=== PATIENT | male | born 2000 | race Caucasian/White ===

== ENCOUNTER 2020-05-04 21:59 | Emergency (ER) | payer SELFPAY ==
[~2020-05-04] VITALS: Ht 188 cm; Wt 117.0 kg
[2020-05-04] MEDS ORDERED: ALBUTEROL (0.083%) 2.5MG/3ML NEB HHN STA (23:37)
[2020-05-04] MEDS ORDERED: PREDNISONE 20MG TABLET PO STA (23:37)
[2020-05-04] MEDS ORDERED: IPRATROPIUM BROMIDE (0.02%) 0.5MG/2.5ML NEB HHN STA (23:37)
[2020-05-05 02:45] VITALS: BP 120/72
== END 2020-05-05 02:47 | disposition home or self-care (01) ==
LOC: ER 21:59
DX: J45.901 Unspecified asthma with (acute) exacerbation (principal); R06.02 Shortness of breath; Z76.0 Encounter for issue of repeat prescription
CPT/HCPCS: 71045; 93005; 94640; 99283; J7512; Z7610

== ENCOUNTER 2022-12-26 20:59 | Emergency (ER) | payer MEDICAID ==
[~2022-12-26] VITALS: Ht 190.5 cm; Wt 113.0 kg
[2022-12-26] MEDS ORDERED: KETOROLAC 60MG/2ML VIAL IM ONE (21:30)
[2022-12-26] MEDS ORDERED: IBUP-2028 MT (22:01)
[2022-12-26 22:13] VITALS: BP 125/76
== END 2022-12-26 22:13 | disposition home or self-care (01) ==
LOC: ER 20:59
DX: M25.571 Pain in right ankle and joints of right foot (principal); J45.909 Unspecified asthma, uncomplicated; X58.XXXA Exposure to other specified factors, initial encounter; Y93.67 Activity, basketball; Y92.89 Other specified places as the place of occurrence of the external cause; Y99.8 Other external cause status
CPT/HCPCS: 73610; 99283; Z7610

== ENCOUNTER 2023-07-05 14:14 | Emergency (ER) | payer MEDICAID ==
[~2023-07-05] VITALS: Ht 188 cm; Wt 108.9 kg
[~2023-07-05 14:14] MED LIST: IBUP-2028 MT
[2023-07-05 14:21] VITALS: BP 137/75; O2SAT 98
[2023-07-05] MEDS ORDERED: NAPR-681 PO (16:54)
[2023-07-05] MEDS ORDERED: ALBU18HF2 IH (16:54)
[2023-07-05] MEDS ORDERED: GUAI5LIQ13 PO (16:54)
[2023-07-05 17:55] VITALS: PULSE 77; RESP 16; TEMP 98.6
== END 2023-07-05 17:55 | disposition home or self-care (01) ==
LOC: ER 14:14
DX: J20.9 Acute bronchitis, unspecified (principal); J02.9 Acute pharyngitis, unspecified
CPT/HCPCS: 87430; 87070; 71045; 99284; Z7610

== ENCOUNTER 2023-11-23 20:56 | Emergency (ER) | payer MEDICAID ==
[~2023-11-23] VITALS: Ht 188 cm; Wt 113.0 kg
[~2023-11-23 20:56] MED LIST changes: +ALBU18HF2 IH; +GUAI5LIQ13 PO; +NAPR-681 PO
[2023-11-23 21:12] VITALS: BP 112/55; PULSE 60; RESP 18; TEMP 97.8; O2SAT 100
== END 2023-11-24 01:34 | disposition left against medical advice (07) ==
LOC: ER 20:56
DX: R68.89 Other general symptoms and signs (principal); Z53.21 Procedure and treatment not carried out due to patient leaving prior to being seen by health care provider
CPT/HCPCS: 99281